=== PATIENT | male | born 1965 | race Caucasian/White ===

== ENCOUNTER 2018-08-09 08:46 | Emergency (ER) | payer MEDICAID, OTHER ==
[~2018-08-09] VITALS: Ht 180.3 cm; Wt 90.0 kg
[2018-08-09 08:51] VITALS: BP 109/57
== END 2018-08-09 10:30 | disposition left against medical advice (07) ==
LOC: ER 08:46
DX: Z53.21 Procedure and treatment not carried out due to patient leaving prior to being seen by health care provider (principal)